=== PATIENT | male | born 1960 | race Caucasian/White ===

== ENCOUNTER → 2016-10-12 | Outpatient (CLI) | payer BC ==
[~2016-10-12] MED LIST: CRESTOR 10MG10 MG PO; FISH OIL1000 MG PO; HCTZ 25MG TAB25 MG PO; INDOCIN50 MG PO; LIPITOR 40MG TA40 MG PO; NEXIUM 40MG40 MG PO; PRIL40 PO; PROAIR HFA0.09 MG/AC IH; ZESTRIL 20MG TA20 MG PO
== END ==
LOC: COL.RAD 10:58
DX: K57.30 Diverticulosis of large intestine without perforation or abscess without bleeding (principal); N40.0 Benign prostatic hyperplasia without lower urinary tract symptoms; N23 Unspecified renal colic; Q63.0 Accessory kidney; K62.5 Hemorrhage of anus and rectum; R19.5 Other fecal abnormalities
CPT/HCPCS: Q9967